=== PATIENT | female | born 1945 | race Caucasian/White ===

== ENCOUNTER 2018-12-06 14:18 | Inpatient (IN) | payer MEDICARE, MEDICAID ==
[2018-11-28 16:20] LABS: BASOPHILS # (AUTO) 0.1 X10'3 (0-0.2); BASOPHILS % (AUTO) 0.7 % (0-1); EOSINOPHILS # (AUTO) 0.1 X10'3 (0-0.9); EOSINOPHILS % (AUTO) 1.8 % (0-6); LYMPHOCYTES # (AUTO) 2.5 X10'3 (1.1-4.8); MEAN CORPUSCULAR HEMOGLOBIN 29.7 PG (27.0-31.0); MEAN CORPUSCULAR HGB CONC 34.1 g/dL (33.0-36.5); MEAN CORPUSCULAR VOLUME 87.2 FL (78-98); MEAN PLATELET VOLUME 9.4 FL (7.4-10.4); MONOCYTES # (AUTO) 0.5 X10'3 (0-0.9); MONOCYTES % (AUTO) 6.4 % (2-12); NEUTROPHILS # (AUTO) 4.8 X10'3 (1.8-7.7); NEUTROPHILS % (AUTO) 60.1 % (42-75); PRE OP HEMATOCRIT 38.4 % (35.0-45.0); PRE OP HEMOGLOBIN 13.1 g/dL (12.0-16.0); PRE OP PLATELET COUNT 257 X10'3 (140-440); RED CELL DISTRIBUTION WIDTH 13.5 % (11.5-14.5)
[2018-11-28 16:44] LABS: ALBUMIN 3.4 G/DL (3.4-5.0); ALBUMIN/GLOBULIN RATIO 0.8 (1.1-1.5); ALKALINE PHOSPHATASE 200 IU/L (46-116); BLOOD UREA NITROGEN 15 MG/DL (7-18); BUN/CREATININE RATIO 20.5 (6.6-38.0); CALCIUM 9.9 MG/DL (8.5-10.1); CHLORIDE 106 MMOL/L (99-107); CREATININE 0.73 MG/DL (0.40-0.90); PRE OP ALT 76 U/L (30-65); PRE OP ANION GAP 7 (8-16); PRE OP AST 58 U/L (10-37); PRE OP BILIRUB, TOTAL 0.2 MG/DL (0.0-1.0); PRE OP GLUCOSE 127 MG/DL (70-104); PRE OP POTASSIUM 3.5 MMOL/L (3.4-5.1); PRE OP SODIUM 142 MMOL/L (135-145); TOTAL PROTEIN 7.6 G/DL (6.4-8.2); eGFR 79 ML/MIN
[2018-11-28 16:48] LABS: CLARITY,URINE CLEAR (Clear); COLOR,URINE YELLOW (Yellow); GLUCOSE, URINE NEGATIVE (Neg); KETONES,URINE NEGATIVE (Neg); LEUKOCYTE ESTERASE ,URINE NEGATIVE (Neg); NITRITES, URINE NEGATIVE (Neg); OCCULT BLOOD,URINE NEGATIVE (Neg); PH,URINE 6.5 (4.8-8.0); PROTEIN,URINE NEGATIVE (Neg); UROBILINOGEN,URINE 0.2 E.U/dL (0.2-1.0)
[2018-11-28 17:25] LABS: UA COLLECTION TYPE CLN CATCH MIDSTREAM
[~2018-12-06] VITALS: Ht 165.1 cm; Wt 87.0 kg
[~2018-12-06 14:18] MED LIST: AMLO5TAB PO; ASPI-611 PO; CALC-1197 PO; ENAL20TA75 PO; HYDR25TA4 PO; LEVO112T5 PO; LIOT25TA8 PO; MULT1TAB74 PO; OMEG-166 PO; POTA10TA10 PO; RALO60TA55 PO; VITAMIN B6 PO
[2018-12-13] VITALS (20 sets, daily range): BP systolic 113–165; BP diastolic 56–93
[2018-12-13] MEDS ORDERED: ringers solution, lacted 1,000 ML IV SCH ×2 (05:00→09:06)
[2018-12-13] MEDS ORDERED: famotidine 20mg tablet PO ONE (05:30)
[2018-12-13] MEDS ORDERED: VANCOMYCIN INJ 1000 MG in NORMAL SALINE 250ml IV.SOLN IV ONE (05:30)
[2018-12-13] MEDS ORDERED: ceFAZolin 2gm in dextrose, iso 100 ML IV ONE (05:30)
[2018-12-13] MEDS ORDERED: LIDOcaine 1% (10mg/ml) 2ml vial ONE (05:45)
[2018-12-13] MEDS ORDERED: ROPIVAcaine 0.5% (5mg/ml) 30ml vial ONE (07:17)
[2018-12-13] MEDS ORDERED: fentaNYL/PF 50MCG/1 ML 2ML syringe ONE (07:20)
[2018-12-13] MEDS ORDERED: MIDAZolam 5mg/5ml vial ONE (07:20)
[2018-12-13] MEDS ORDERED: propofol inj 20 ML IV ONE (07:21)
[2018-12-13] MEDS ORDERED: sevoflurane 250ml liquid IH ONE (07:23)
[2018-12-13] MEDS ORDERED: ePHEDrine 50MG/ML INJ. ONE (08:55)
[2018-12-13] MEDS ORDERED: ondansetron/PF 4mg/2ml inj IV PRN ×2 (09:10→11:00)
[2018-12-13] MEDS ORDERED: meperidine/PF 25mg/ml syringe IV PRN ×3 (09:10)
[2018-12-13] MEDS ORDERED: morphine 4 MG/ML inj SYRINge IV PRN ×2 (09:10)
[2018-12-13] MEDS ORDERED: proCHLORperazine 10 MG/2 ml inj IV PRN (09:10)
[2018-12-13] MEDS ORDERED: ceFAZolin 1000mg inj ONE (10:45)
--- NOTE | 2018-12-13 10:47 | NUR ---
Received from OR via BED, accompanied by Anesthesiologist DR ANN and report given by Anesthesiologist. 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 Addendum: 12/13/18 at 1121 by Nancy Landis RN Amended: Links added.
[2018-12-13] MEDS ORDERED: diphenhydrAMINE 25mg capsule PO PRN ×2 (11:00)
[2018-12-13] MEDS ORDERED: metoclopramide 5 mg/ml inj IV PRN (11:00)
[2018-12-13] MEDS ORDERED: mag hydrox/Alum hydrox/simeth 30ml oral suspension PO PRN (11:00)
[2018-12-13] MEDS ORDERED: bisacodyl 10mg suppository rectal RC PRN (11:00)
[2018-12-13] MEDS ORDERED: acetaminophen 325mg tablet PO PRN (11:00)
[2018-12-13] MEDS ORDERED: magnesium hydroxide 30ml (MOM) UD suspension PO PRN (11:00)
[2018-12-13] MEDS ORDERED: HYDROcodone/acetaminophen 10/325mg tab PO PRN ×2 (11:00)
[2018-12-13] MEDS ORDERED: naloxone 0.4 mg/ml inj IV PRN (11:00)
[2018-12-13] MEDS ORDERED: CADD PCA waste documentation MC PRN (11:00)
--- NOTE | 2018-12-13 11:45 | NUR ---
I have received patient report from Nancy ROBERTS
--- NOTE | 2018-12-13 12:17 | NUR ---
Report called to receiving nurse. Transferred via BED, 1 BAG OF PT Belongings SENT W/PT TO ROOM 4021B, RECEIVING RN AT BEDSIDE TO RECEIVE PT, SIDE RAILS UP, BLL, CALL LIGHT GIVEN, PTS AT BEDSIDE. Special Issues communicated to receiving nurse. YES. Addendum: 12/13/18 at 1230 by Nancy Landis RN Amended: Links added.
[2018-12-13] MEDS: potassium cl 20mEq in 1/2 NS 1,000 ML IV SCH ×3 (13:21→23:28)
[2018-12-13] MEDS: gabapentin 300mg capsule PO SCH ×2 (13:22→20:19)
[2018-12-13] MEDS: acetaminophen 325mg tablet PO SCH ×2 (13:22→20:20)
[2018-12-13] MEDS: ceFAZolin 1GM/D5W- ADD-VANTAGE 50 ML IV SCH ×2 (15:41→23:28)
--- NOTE | 2018-12-13 15:59 | NUR ---
patient Blood sugar was high at 1338 after she ate. I ordered a carb control diet per protocol and acu-checks.
--- NOTE | 2018-12-13 17:34 | NUR ---
I spoke with Dr. Vela regarding patient blood sugar of 249, he said to give her one dose of 500mg metformin now and start 500mg metformin BID starting tomorrow. He also ordered A1c for patient. Addendum: 12/13/18 at 1755 by Bing Molina RN patient stated she was actually only taking 250mg of metformin BID, I told Dr. Vela this, he is okay with this decreased dose for now.
[2018-12-13] MEDS ORDERED: metFORMIN 500mg tablet PO ONE ×2 (17:35→17:55)
--- NOTE | 2018-12-13 18:05 | NUR ---
I gave patient report to Brenda ROBERTS
--- NOTE | 2018-12-13 18:10 | NUR ---
Patient in room [facility] 4021. I have received report from ALEJANDRA Martinez and had the opportunity to ask questions and assume patient care.
[2018-12-13] MEDS: HYDROmorphone/NS 1 mg/ml CADD 50 ML IV SCH ×3 (19:00→23:00)
[2018-12-13] MEDS ORDERED: vancomycin/NS 1 GM ADD-VANTAGE 250 ML IV SCH (20:00)
[2018-12-13] MEDS: ascorbic acid 500mg tablet PO SCH (20:19)
[2018-12-13] MEDS: sennosides/docusate sodium tablet PO SCH (20:20)
[2018-12-13] MEDS ORDERED: sennosides 8.6mg tablet PO SCH (21:00)
[2018-12-14] MEDS: HYDROmorphone/NS 1 mg/ml CADD 50 ML IV SCH ×2 (01:00→03:00)
[2018-12-14] MEDS: acetaminophen 325mg tablet PO SCH ×2 (02:00→09:40)
[2018-12-14 02:49] VITALS: BP 135/68
[2018-12-14 06:00] VITALS: BP 130/60
--- NOTE | 2018-12-14 06:10 | NUR ---
Problems reprioritized. Patient report given, questions answered & plan of care reviewed with ALEJANDRA Martinez.
--- NOTE | 2018-12-14 06:30 | NUR ---
I have received patient report from Brenda ROBERTS
[2018-12-14 07:25] LABS: BASOPHILS % (AUTO) 0.3 % (0-1); EOSINOPHILS % (AUTO) 0.1 % (0-6); HEMATOCRIT 32.9 % (35.0-45.0); HEMOGLOBIN 11.2 g/dl (12.0-16.0); LYMPHOCYTES # (AUTO) 2.7 X10'3 (1.1-4.8); LYMPHOCYTES % (AUTO) 18.8 % (21-51); MEAN CORPUSCULAR HEMOGLOBIN 30.2 PG (27.0-31.0); MEAN CORPUSCULAR VOLUME 88.6 FL (78-98); MONOCYTES # (AUTO) 1.2 X10'3 (0-0.9); MONOCYTES % (AUTO) 8.2 % (2-12); NEUTROPHILS # (AUTO) 10.4 X10'3 (1.8-7.7); NEUTROPHILS % (AUTO) 72.6 % (42-75); PLATELET COUNT 246 X10'3 (140-440); RED BLOOD COUNT 3.71 X10'6 (4.20-5.60); WHITE BLOOD COUNT 14.3 X10'3 (4.5-11.0)
[2018-12-14 07:34] LABS: ANION GAP 11 (8-16); CHLORIDE 109 MMOL/L (99-107); SODIUM 144 MMOL/L (135-145); TOTAL CARBON DIOXIDE 23.8 MMOL/L (24-32)
[2018-12-14] MEDS ORDERED: lisinopril 20mg tablet PO SCH (08:00)
[2018-12-14] MEDS ORDERED: LIOthyronine 25mcg tablet PO SCH (08:00)
[2018-12-14] MEDS ORDERED: enoxaparin 40mg/0.4ml syringe SQ SCH (08:00)
[2018-12-14] MEDS ORDERED: levoTHYROXINE 112mcg tablet PO SCH (08:00)
[2018-12-14] MEDS ORDERED: raloxifene 60mg tablet PO SCH (08:00)
[2018-12-14] MEDS ORDERED: metFORMIN 500mg tablet PO SCH ×3 (08:00)
[2018-12-14] MEDS ORDERED: multivitamins, therapeutics tablet PO SCH (08:00)
[2018-12-14] MEDS ORDERED: HYDROchlorothiazide 25mg tablet PO SCH (08:00)
[2018-12-14] MEDS ORDERED: amLODIPine 5mg tablet PO SCH (08:00)
[2018-12-14] MEDS ORDERED: potassium chloride 10mEq ER tablet PO SCH (08:00)
[2018-12-14] MEDS: sennosides/docusate sodium tablet PO SCH (09:40)
[2018-12-14] MEDS: gabapentin 300mg capsule PO SCH (09:41)
[2018-12-14] MEDS: ascorbic acid 500mg tablet PO SCH (09:42)
[2018-12-14 10:00] VITALS: BP 176/84
--- NOTE | 2018-12-14 11:45 | NUR ---
Patient discharged with . She was taught all discharge instructions and to follow up with Dr. Vela.
== END 2018-12-14 11:45 | disposition home or self-care (01) | DRG 483 ==
LOC: EDSTATUS 14:45 → PAS IN 12-13 05:27 → EDSTATUS 12-13 07:30 → ORTHO 4S 12-13 12:23
PROVIDERS: ADMIT Orthopaedic Surgery; ATTEND Orthopaedic Surgery
PROC: 3E0T3BZ Introduction of Anesthetic Agent into Peripheral Nerves and Plexi, Percutaneous Approach (ICD-10-PCS; 2018-12-13)
PROC: 0RRJ0JZ Replacement of Right Shoulder Joint with Synthetic Substitute, Open Approach (ICD-10-PCS; principal; 2018-12-13 07:23)
DX: M19.011 Primary osteoarthritis, right shoulder (principal); E11.9 Type 2 diabetes mellitus without complications; F17.209 Nicotine dependence, unspecified, with unspecified nicotine-induced disorders; I10 Essential (primary) hypertension; E78.5 Hyperlipidemia, unspecified; E03.9 Hypothyroidism, unspecified; E55.9 Vitamin D deficiency, unspecified; Z96.653 Presence of artificial knee joint, bilateral; F32.89 Other specified depressive episodes; E66.8 Other obesity; M75.42 Impingement syndrome of left shoulder; Z68.31 Body mass index [BMI] 31.0-31.9, adult
CPT/HCPCS: 36415; 71046; 73020; 80051; 80053; 81003; 82948; 83036; 84443; 85025; 85610; 85730; 87070; 97116; 97161; 97530; A4565; A6250; A6449; A7000; C1713; C1758; C1776; G0378; J0690; J1650; J2250; J2704; J2795; J3010; J3370; J3490; J7030; J7120; L3650